=== PATIENT | male | born 1960 | race Caucasian/White ===

== ENCOUNTER 2022-05-20 19:20 | Outpatient (REF) | payer MEDICAID, SELFPAY ==
[2022-05-20 20:08] LABS: Calculated LDL 140 mg/dL (<100); Cholesterol 228 mg/dL (<200); HDL Cholesterol 51 mg/dL (40-60); Triglyceride 186 mg/dL (<150)
== END 2022-05-20 19:21 | disposition home or self-care (01) ==
LOC: NCHCN 19:20
PROVIDERS: Visit Provider Nurse Practitioner Family
DX: Z13.220 Encounter for screening for lipoid disorders (principal)
CPT/HCPCS: 80061

== ENCOUNTER 2022-08-15 14:57 | Outpatient (REF) | payer MEDICAID, SELFPAY ==
--- NOTE | 2022-08-15 13:15 | SKI_PTH ---
PATIENT: Jared Hair LOC: [facility]#:[id number] AGE/SX: 62/M ROOM: RE08/15/[address]: CHRIS Burnham : 1960 BED: DIS: 08/15/2022 SPEC #: [id number] RECD: 08/18/22 12:18 STATUS: QUYEN REQ #: [id number] DOMINIC: 08/15/22 13:[address]: Renan Jaeger DEPT: Surgical Specimen RECD BY: Mojgan Becker ENTERED: 08/18/22 12:18 SP TYPE: BELÉN VELEZ DR: LEONARDO DIAZ Tissues: 1 - SKIN BIOPSY(SHAVE/PUNCH) Procedures: SKIN LEVEL 4 Comments: [id number]
== END 2022-08-15 14:58 | disposition home or self-care (01) ==
LOC: LBN 14:57
PROVIDERS: PCP Nurse Practitioner Family; Visit Provider Physician Assistant
DX: R21 Rash and other nonspecific skin eruption (principal)
CPT/HCPCS: 88305

== ENCOUNTER 2022-09-17 17:57 | Outpatient (REF) | payer MEDICAID, SELFPAY ==
[2022-09-17 19:48] LABS: ALT 26 U/L (16-63); AST 31 U/L (15-37); Albumin 3.6 g/dL (3.4-5.0); Alkaline Phosphatase 85 U/L (46-116); Anion Gap 12.1 mmol/L (3-11); BUN 10 mg/dL (7-18); Bilirubin, Total 0.4 mg/dL (0.2-1.0); CO2 22.9 mmol/L (21.0-32.0); CREATININE 0.8 mg/dL (0.70-1.30); Calcium 8.1 mg/dL (8.5-10.1); Calculated LDL 78 mg/dL (<100); Chloride 103 mmol/L (98-107); Cholesterol 154 mg/dL (<200); Estimated GFR 101.32 (mL/min/1.73m2); Glucose 76 mg/dL (74-106); HDL Cholesterol 49 mg/dL (40-60); Potassium 4.2 mmol/L (3.5-5.1); Sodium 138 mmol/L (136-145); Total Protein 7.6 g/dL (6.4-8.2); Triglyceride 135 mg/dL (<150)
== END 2022-09-17 17:58 | disposition home or self-care (01) ==
LOC: NCHCN 17:57
PROVIDERS: PCP Nurse Practitioner Family; Visit Provider Nurse Practitioner Family
DX: E78.5 Hyperlipidemia, unspecified (principal)
CPT/HCPCS: 80053; 80061

== ENCOUNTER 2023-07-09 15:55 | Outpatient (REF) | payer MEDICAID, SELFPAY ==
[2023-07-09 15:35] LABS: ALT 30 U/L (16-63); AST 22 U/L (15-37); Albumin 3.7 g/dL (3.4-5.0); Alkaline Phosphatase 99 U/L (46-116); BUN 15 mg/dL (7-18); Bilirubin, Total 0.4 mg/dL (0.2-1.0); CREATININE 0.9 mg/dL (0.70-1.30); Calcium 9.2 mg/dL (8.5-10.1); Calculated LDL 90 mg/dL (<100); Chloride 105 mmol/L (98-107); Cholesterol 162 mg/dL (<200); Estimated GFR 97.17 (mL/min/1.73m2); Glucose 85 mg/dL (74-106); HDL Cholesterol 50 mg/dL (40-60); Potassium 4.6 mmol/L (3.5-5.1); Sodium 141 mmol/L (136-145); Total Protein 7.4 g/dL (6.4-8.2); Triglyceride 114 mg/dL (<150)
[2023-07-10 08:43] LABS: PSA, Screening 53.3 ng/mL (<=4.5)
== END 2023-07-09 15:56 | disposition home or self-care (01) ==
LOC: NCHCN 15:55
PROVIDERS: PCP Nurse Practitioner Family; Visit Provider Nurse Practitioner Family
DX: E78.5 Hyperlipidemia, unspecified (principal); Z12.5 Encounter for screening for malignant neoplasm of prostate
CPT/HCPCS: 80053; 80061; 84153

== ENCOUNTER 2023-08-07 14:41 | Outpatient (REF) | payer MEDICAID, SELFPAY ==
--- NOTE | 2023-08-07 15:40 | PROST_PTH ---
PATIENT: Jared Hair LOC: [facility] U#:[id number] AGE/SX: 63/M ROOM: RE08/07/[address]: Kwasi Tavares MD : 1960 BED: DIS: 08/07/2023 SPEC #: [id number] RECD: 08/07/23 17:13 STATUS: QUYEN RE #: [id number] DOMINIC: 08/07/23 15:[address]: Kwasi Tavares DEPT: Surgical Specimen RECD BY: Mojgan Becker ENTERED: 08/07/23 17:14 SP TYPE: PROST OTHR DR: Thelma Garza Tissues: 1 - PROSTATE NEEDLE BIOPSY 2 - PROSTATE NEEDLE BIOPSY 3 - PROSTATE NEEDLE BIOPSY 4 - PROSTATE NEEDLE BIOPSY 5 - PROSTATE NEEDLE BIOPSY 6 - PROSTATE NEEDLE BIOPSY 7 - PROSTATE NEEDLE BIOPSY 8 - PROSTATE NEEDLE BIOPSY 9 - PROSTATE NEEDLE BIOPSY 10 - PROSTATE NEEDLE BIOPSY 11 - PROSTATE NEEDLE BIOPSY 12 - PROSTATE NEEDLE BIOPSY Procedures: GROSS AND MICRO LEVEL 4 Comments: [id number]
== END 2023-08-07 14:42 | disposition home or self-care (01) ==
LOC: LBN 14:41
PROVIDERS: PCP Nurse Practitioner Family; Visit Provider Urology
DX: R97.20 Elevated prostate specific antigen [PSA] (principal); C61 Malignant neoplasm of prostate
CPT/HCPCS: 88305

== ENCOUNTER → 2023-09-22 00:43 | Outpatient (CLI) | payer MEDICAID, SELFPAY ==
--- NOTE | 2023-09-22 06:15 | DI.CT_ITS ---
Exam(s) CT CHEST/ABD/PEL W EXAM: CT CHEST/ABD/PEL W CLINICAL HISTORY: prostate ca, C61,?mets TECHNIQUE: Imaging Protocol: Axial computed tomography images with coronal and sagittal reformatted images were created and reviewed CONTRAST MATERIAL: Intravenous: Omnipaque 350 contrast volume:100 mL Oral: Yes COMPARISON: No exams were available for comparison FINDINGS: The examination is limited due to patient motion artifact. CHEST: Tracheobronchial tree: Patent where visualized. Pulmonary parenchyma: Mild centrilobular emphysematous changes are present. No focal consolidating i nfiltrates are seen. No pulmonary nodules are present. No architectural distortion. Visualized thyroid gland: Unremarkable. Mediastinum and Mee: No dominant adenopathy or fluid collection. The esophagus is unremarkable. Pleura: No effusion or pneumothorax. Heart: The heart is not dilated. No coronary artery calcifications are seen. No pericardial effusion. Pulmonary arteries: No pulmonary emboli are identified. Aorta: Thoracic aorta non-dilated. No evidence of dissection. Mild atherosclerotic calcification is present. Lymph nodes: Within normal limits. Soft tissues: Unremarkable. Bones:Within normal limits for the patient's age. No aggressive osseous lesions are identified. ABDOMEN: Liver: Normal density. No measurable mass. Portal, Superior Mesenteric, and Splenic Veins: Unremarkable. Gallbladder and Biliary Tract: The gallbladder is contracted limiting evaluation. No biliary ductal dilatation is present. Pancreas: Normal density, no abnormal calcifications or inflammatory process. Spleen: Normal. Adrenals: No masses seen. Kidneys: Normal size, contour and axis. No radiodense stones or obstructive uropathy. No masses seen. Abdominal Aorta: Abdominal portion non-dilated. Atherosclerotic calcification is present. Bowel: No obstruction or bowel wall thickening. No evidence of appendicitis. Peritoneal Cavity: No ascites, collection or mesenteric inflammatory response. No free air. Lymph Nodes: There are enlarged lymph nodes in the pelvis. The lymph nodes are associated with the i nternal and external iliac chain. The largest is seen on the left and measures 2.3 cm (series 16, im age 89). Bones: Within normal limits for the patient's age. There is a solitary sclerotic focus in the right sacrum. Soft Tissues: There is a small fat containing umbilical hernia. PELVIS: Bladder: Symmetric distention, no gross wall thickening. Reproductive Organs: Unremarkable as visualized. Lymph Nodes: Within normal limits. Bones: Within normal limits. IMPRESSION: 1. No evidence of thoracic metastatic disease. 2. Enlarged iliac chain adenopathy. 3. Solitary sclerotic focus in the right sacrum. Correlation with bone scan is recommended. 4. Mild centrilobular emphysematous changes in the lungs. RADIATION DOSE DELIVERED: Total DLP DATA REPOSITORY: All CT scans at this facility are submitted to the National Radiology Data Registry (NRDR) Dose Index Registry (DIR) with the [employer] (A[employer]). RADIATION OPTIMIZATION: All CT scans at this facility use at least one of these dose optimization te chniques: automated exposure control; mA and/or kV adjustment per patient size (includes targeted exa ms where dose is matched to clinical indication); or iterative reconstruction.
--- NOTE | 2023-09-22 06:26 | DI.NM_ITS ---
Exam(s) NM BONE SCAN WHOLE BODY GRP EXAM: NM BONE SCAN WHOLE BODY GRP CLINICAL HISTORY: prostate ca, ?mets,C61. TECHNIQUE: Injected Dose: 25 mCi Tc-99m MDP Delayed Images: 2-3 hours. COMPARISON: CT CT CHEST/ABD/PEL W from 09/22/2023 FINDINGS: Symmetric axial uptake. Bilateral renal excretion is identified. There is a focus of increased radiot racer uptake in the upper cervical spine on the left. This may be within the facet joint. It is dmitriy reciated on the posterior view. There is also increased radiotracer uptake seen in alveolar process of the maxilla and the mandible. There is otherwise no significant increased radiotracer uptake. De generative uptake is seen in the shoulders bilaterally. IMPRESSION: 1. Increased radiotracer uptake seen in the cervical spine which may be degenerative in nature. Nanda elation with x-ray of the cervical spine is recommended. 2. Increased lactate is seen in the maxilla and mandible. Please correlate with any procedural histo ry or clinical history. CT scan or x-ray correlation is recommended. Unexpected findings DATA REPOSITORY:
[2023-09-22 07:46] LABS: Estimated GFR 85.63 (mL/min/1.73m2)
[2023-09-22] MEDS: Barium Sulfate 2% W/V-Creamy Vanilla Smoothie 450 ML BTL PO ×2 (08:47→08:49)
[2023-09-22] MEDS: Omnipaque 350 MG/ML 100 ML BTL IJ (09:30)
[2023-09-22] MEDS: Normal Saline - Diluent 50 ML VIAL IJ (09:48)
== END ==
PROVIDERS: PCP Nurse Practitioner Family; Visit Provider Urology
DX: C61 Malignant neoplasm of prostate (principal)
CPT/HCPCS: 74177; 78306; 71260; 82565; J3490

== ENCOUNTER 2023-12-04 02:49 | Outpatient (CLI) | payer MEDICAID, SELFPAY ==
[2023-12-04 10:17] LABS: Abs Immature Grans 0.03 10^3/uL (0.0-0.06); Absolute Basophil Count 0.12 10^3/uL (0.0-0.2); Absolute Lymphocyte Count 2.38 10^3/uL (1.2-3.4); Absolute Monocyte Count 0.54 10^3/uL (0.1-0.8); Absolute Neutrophil Count 5.17 10^3/uL (1.2-6.7); Basophils % 1.4 %; Eosinophils % 3.5 %; HCT 42.1 % (40.0-50.0); HGB 13.9 g/dL (13.5-17.5); Immature Grans % 0.4 %; Lymphocytes % 27.9 %; MCH 32.1 pg (27.0-33.0); MCV 97 fL (80-95); MPV 10.2 fL (8.0-11.0); Monocytes % 6.3 %; Neutrophils % 60.5 %; Platelet Count 283 10^3/uL (130-400); RBC 4.33 10^6/uL (4.36-5.78); RDW 14.2 % (11.8-14.1); RDW-SD 51.3 fL; WBC 8.54 10^3/uL (4.4-10.8)
[2023-12-04 10:40] LABS: ALT 23 U/L (16-63); AST 22 U/L (15-37); Albumin 3.4 g/dL (3.4-5.0); Alkaline Phosphatase 89 U/L (46-116); Anion Gap 7.9 mmol/L (3-11); BUN 16 mg/dL (7-18); Bilirubin, Total 0.35 mg/dL (0.2-1.0); CO2 25.1 mmol/L (21.0-32.0); Calcium 8.6 mg/dL (8.5-10.1); Chloride 106 mmol/L (98-107); Estimated GFR 85.63 (mL/min/1.73m2); Glucose 85 mg/dL (74-106); Potassium 3.6 mmol/L (3.5-5.1); Sodium 139 mmol/L (136-145); Total Protein 7.2 g/dL (6.4-8.2)
[2023-12-08 13:13] LABS: Testosterone, Total <7.0 ng/dL (240-950)
[2023-12-09 10:32] LABS: PSA, Ultrasensitive 39.5 ng/mL (<= 4.5)
== END 2023-12-04 02:50 | disposition home or self-care (01) ==
PROVIDERS: Nurse Practitioner; PCP Nurse Practitioner Family; Visit Provider Internal Medicine Hematology
DX: C61 Malignant neoplasm of prostate (principal); C79.51 Secondary malignant neoplasm of bone
CPT/HCPCS: 80053; 84153; 84403; 85025

== ENCOUNTER 2024-01-19 03:00 | Outpatient (CLI) | payer MEDICAID, SELFPAY ==
[2024-01-19 11:29] LABS: Abs Immature Grans 0.03 10^3/uL (0.0-0.06); Absolute Basophil Count 0.08 10^3/uL (0.0-0.2); Absolute Eosinophil Count 0.32 10^3/uL (0.0-0.7); Absolute Monocyte Count 0.53 10^3/uL (0.1-0.8); Absolute Neutrophil Count 4.98 10^3/uL (1.2-6.7); Eosinophils % 4.1 %; HCT 42.6 % (40.0-50.0); HGB 14.2 g/dL (13.5-17.5); Immature Grans % 0.4 %; Lymphocytes % 23.3 %; MCH 31.8 pg (27.0-33.0); MCHC 33.3 % (32.0-36.0); MCV 95 fL (80-95); MPV 9.7 fL (8.0-11.0); Monocytes % 6.8 %; Neutrophils % 64.4 %; Platelet Count 290 10^3/uL (130-400); RBC 4.47 10^6/uL (4.36-5.78); RDW 12.9 % (11.8-14.1); RDW-SD 45.8 fL; WBC 7.74 10^3/uL (4.4-10.8)
[2024-01-19 11:45] LABS: ALT 31 U/L (16-63); AST 24 U/L (15-37); Albumin 3.7 g/dL (3.4-5.0); Alkaline Phosphatase 112 U/L (46-116); Anion Gap 7.1 mmol/L (3-11); BUN 22 mg/dL (7-18); Bilirubin, Total 0.48 mg/dL (0.2-1.0); CO2 27.9 mmol/L (21.0-32.0); CREATININE 1.1 mg/dL (0.70-1.30); Calcium 8.9 mg/dL (8.5-10.1); Chloride 105 mmol/L (98-107); Estimated GFR 76.37 (mL/min/1.73m2); Glucose 99 mg/dL (74-106); Potassium 3.9 mmol/L (3.5-5.1); Sodium 140 mmol/L (136-145); Total Protein 7.8 g/dL (6.4-8.2)
[2024-01-21 11:06] LABS: PSA, Ultrasensitive 0.97 ng/mL (<= 4.5)
[2024-01-22 14:11] LABS: Testosterone, Total <7.0 ng/dL (240-950)
== END 2024-01-19 03:01 | disposition home or self-care (01) ==
LOC: LBO 03:00
PROVIDERS: PCP Nurse Practitioner Family; Visit Provider Internal Medicine
DX: C61 Malignant neoplasm of prostate (principal); C79.51 Secondary malignant neoplasm of bone
CPT/HCPCS: 36415; 80053; 84153; 84403; 85025

== ENCOUNTER 2024-02-18 02:43 | Outpatient (CLI) | payer MEDICAID, SELFPAY ==
[2024-02-18 10:41] LABS: Abs Immature Grans 0.03 10^3/uL (0.0-0.06); Absolute Basophil Count 0.11 10^3/uL (0.0-0.2); Absolute Eosinophil Count 0.38 10^3/uL (0.0-0.7); Absolute Lymphocyte Count 3.24 10^3/uL (1.2-3.4); Absolute Monocyte Count 0.72 10^3/uL (0.1-0.8); Absolute Neutrophil Count 5.55 10^3/uL (1.2-6.7); Basophils % 1.1 %; Eosinophils % 3.8 %; HCT 41.4 % (40.0-50.0); HGB 13.8 g/dL (13.5-17.5); Immature Grans % 0.3 %; Lymphocytes % 32.3 %; MCH 31.9 pg (27.0-33.0); MCHC 33.3 % (32.0-36.0); MCV 96 fL (80-95); Monocytes % 7.2 %; Neutrophils % 55.3 %; Platelet Count 321 10^3/uL (130-400); RBC 4.33 10^6/uL (4.36-5.78); RDW 13.1 % (11.8-14.1); RDW-SD 46.4 fL; WBC 10.03 10^3/uL (4.4-10.8)
[2024-02-18 11:26] LABS: ALT 36 U/L (16-63); AST 24 U/L (15-37); Albumin 3.8 g/dL (3.4-5.0); Alkaline Phosphatase 117 U/L (46-116); Anion Gap 10.2 mmol/L (3-11); BUN 16 mg/dL (7-18); Bilirubin, Total 0.63 mg/dL (0.2-1.0); CO2 27.8 mmol/L (21.0-32.0); Calcium 9.1 mg/dL (8.5-10.1); Chloride 103 mmol/L (98-107); Estimated GFR 85.63 (mL/min/1.73m2); Glucose 87 mg/dL (74-106); Potassium 3.8 mmol/L (3.5-5.1); Sodium 141 mmol/L (136-145); Total Protein 7.9 g/dL (6.4-8.2)
[2024-02-21 15:21] LABS: Testosterone, Total <7.0 ng/dL (240-950)
== END 2024-02-18 02:44 | disposition home or self-care (01) ==
LOC: LBO 02:43
PROVIDERS: PCP Nurse Practitioner Family; Visit Provider Internal Medicine
DX: C61 Malignant neoplasm of prostate (principal); C79.51 Secondary malignant neoplasm of bone
CPT/HCPCS: 36415; 80053; 84153; 84403; 85025

== ENCOUNTER 2024-03-09 04:12 | Outpatient (CLI) | payer MEDICAID, SELFPAY ==
[2024-03-09 10:12] LABS: Abs Immature Grans 0.05 10^3/uL (0.0-0.06); Absolute Basophil Count 0.18 10^3/uL (0.0-0.2); Absolute Eosinophil Count 0.82 10^3/uL (0.0-0.7); Absolute Lymphocyte Count 3.46 10^3/uL (1.2-3.4); Absolute Monocyte Count 0.75 10^3/uL (0.1-0.8); Absolute Neutrophil Count 5.68 10^3/uL (1.2-6.7); Basophils % 1.6 %; Eosinophils % 7.5 %; HCT 42.1 % (40.0-50.0); HGB 13.8 g/dL (13.5-17.5); Immature Grans % 0.5 %; Lymphocytes % 31.6 %; MCH 31.9 pg (27.0-33.0); MCHC 32.8 % (32.0-36.0); MCV 97 fL (80-95); MPV 9.8 fL (8.0-11.0); Monocytes % 6.9 %; Neutrophils % 51.9 %; Platelet Count 329 10^3/uL (130-400); RBC 4.33 10^6/uL (4.36-5.78); RDW 13.4 % (11.8-14.1); RDW-SD 48.7 fL; WBC 10.94 10^3/uL (4.4-10.8)
[2024-03-09 10:45] LABS: ALT 36 U/L (16-63); AST 22 U/L (15-37); Albumin 3.6 g/dL (3.4-5.0); Alkaline Phosphatase 98 U/L (46-116); Anion Gap 6.1 mmol/L (3-11); BUN 20 mg/dL (7-18); Bilirubin, Total 0.37 mg/dL (0.2-1.0); CO2 30.9 mmol/L (21.0-32.0); Chloride 106 mmol/L (98-107); Estimated GFR 85.63 (mL/min/1.73m2); Glucose 91 mg/dL (74-106); Potassium 3.7 mmol/L (3.5-5.1); Sodium 143 mmol/L (136-145); Total Protein 7.7 g/dL (6.4-8.2)
[2024-03-10 19:00] LABS: PSA, Ultrasensitive 0.46 ng/mL (<= 4.5)
[2024-03-13 10:16] LABS: Testosterone, Total <7.0 ng/dL (240-950)
== END 2024-03-09 04:13 | disposition home or self-care (01) ==
LOC: LBO 04:12
PROVIDERS: PCP Nurse Practitioner Family; Visit Provider Internal Medicine
DX: C61 Malignant neoplasm of prostate (principal); C79.51 Secondary malignant neoplasm of bone
CPT/HCPCS: 36415; 80053; 84153; 84403; 85025

== ENCOUNTER 2024-08-09 02:31 | Outpatient (CLI) | payer MEDICAID, SELFPAY ==
[2024-08-09 11:02] LABS: Abs Immature Grans 0.02 10^3/uL (0.0-0.06); Absolute Basophil Count 0.04 10^3/uL (0.0-0.2); Absolute Eosinophil Count 0.29 10^3/uL (0.0-0.7); Absolute Lymphocyte Count 0.35 10^3/uL (1.2-3.4); Absolute Monocyte Count 0.34 10^3/uL (0.1-0.8); Absolute Neutrophil Count 4.58 10^3/uL (1.2-6.7); Basophils % 0.7 %; Eosinophils % 5.2 %; HCT 38.2 % (40.0-50.0); HGB 12.7 g/dL (13.5-17.5); Immature Grans % 0.4 %; Lymphocytes % 6.2 %; MCH 31.6 pg (27.0-33.0); MCHC 33.2 % (32.0-36.0); MCV 95 fL (80-95); MPV 10.1 fL (8.0-11.0); Neutrophils % 81.5 %; Platelet Count 168 10^3/uL (130-400); RBC 4.02 10^6/uL (4.36-5.78); RDW 13.2 % (11.8-14.1); RDW-SD 46.7 fL; WBC 5.62 10^3/uL (4.4-10.8)
[2024-08-09 11:17] LABS: ALT 33 U/L (16-63); AST 25 U/L (15-37); Albumin 3.6 g/dL (3.4-5.0); Alkaline Phosphatase 102 U/L (46-116); Anion Gap 5.6 mmol/L (3-11); BUN 12 mg/dL (7-18); Bilirubin, Total 0.5 mg/dL (0.2-1.0); CO2 28.4 mmol/L (21.0-32.0); CREATININE 1.1 mg/dL (0.70-1.30); Calcium 8.9 mg/dL (8.5-10.1); Chloride 103 mmol/L (98-107); Glucose 101 mg/dL (74-106); Potassium 3.6 mmol/L (3.5-5.1); Sodium 137 mmol/L (136-145); Total Protein 7.5 g/dL (6.4-8.2)
[2024-08-11 09:34] LABS: PSA, Ultrasensitive 0.09 ng/mL (<= 4.5)
[2024-08-14 16:56] LABS: Testosterone, Total <7.0 ng/dL (240-950)
== END 2024-08-09 02:32 | disposition home or self-care (01) ==
LOC: LBO 02:31
PROVIDERS: PCP Nurse Practitioner Family; Visit Provider Internal Medicine
DX: C61 Malignant neoplasm of prostate (principal); C79.51 Secondary malignant neoplasm of bone
CPT/HCPCS: 36415; 80053; 84153; 84403; 85025

== ENCOUNTER 2024-11-15 03:44 | Outpatient (CLI) | payer MEDICAID, SELFPAY ==
[2024-11-15 12:09] LABS: Abs Immature Grans 0.02 10^3/uL (0.0-0.06); HCT 37.2 % (40.0-50.0); HGB 12.5 g/dL (13.5-17.5); Immature Grans % 0.2 %; MCH 33.0 pg (27.0-33.0); MCHC 33.6 % (32.0-36.0); MCV 98 fL (80-95); MPV 9.9 fL (8.0-11.0); Platelet Count 253 10^3/uL (130-400); RBC 3.79 10^6/uL (4.36-5.78); RDW 13.2 % (11.8-14.1); RDW-SD 47.4 fL; WBC 8.15 10^3/uL (4.4-10.8)
[2024-11-15 12:34] LABS: ALT 24 U/L (16-63); AST 19 U/L (15-37); Albumin 3.7 g/dL (3.4-5.0); Alkaline Phosphatase 101 U/L (46-116); Anion Gap 11.3 mmol/L (3-11); BUN 15 mg/dL (7-18); Bilirubin, Total 0.4 mg/dL (0.2-1.0); CO2 24.7 mmol/L (21.0-32.0); Calcium 9.0 mg/dL (8.5-10.1); Chloride 105 mmol/L (98-107); Estimated GFR 100.06 (mL/min/1.73m2); Glucose 94 mg/dL (74-106); Potassium 4.1 mmol/L (3.5-5.1); Sodium 141 mmol/L (136-145); Total Protein 7.3 g/dL (6.4-8.2)
== END 2024-11-15 03:45 | disposition home or self-care (01) ==
LOC: LBO 03:44
PROVIDERS: PCP Nurse Practitioner Family; Visit Provider Internal Medicine
DX: C61 Malignant neoplasm of prostate (principal); C79.51 Secondary malignant neoplasm of bone
CPT/HCPCS: 36415; 80053; 84153; 84403; 85025

== ENCOUNTER 2024-12-28 20:52 | Outpatient (REF) | payer MEDICAID, SELFPAY ==
[2024-12-28 22:01] LABS: Iron 73 ug/dL (65-175); Total Iron Binding Capacity 279 ug/dL (250-450); Transferrin Sat 26 % (20-55)
[2024-12-28 22:25] LABS: Ferritin 270 ng/mL (26-388); Folate 6.3 ng/mL (8.6-20.0); Vitamin B12 442 pg/mL (193-986)
== END 2024-12-28 20:53 | disposition home or self-care (01) ==
LOC: NCHCN 20:52
PROVIDERS: PCP Student in an Organized Health Care Education/Training Program; Visit Provider Student in an Organized Health Care Education/Training Program
DX: D53.9 Nutritional anemia, unspecified (principal)
CPT/HCPCS: 82607; 82728; 82746; 83540; 83550

== ENCOUNTER → 2025-01-06 03:26 | Outpatient (CLI) | payer MEDICAID, SELFPAY ==
--- NOTE | 2025-01-06 | DI.CTLCSR_ITS ---
Exam(s) CT CHEST LUNG CANCER SCREEN EXAM: CT CHEST LUNG CANCER SCREEN CLINICAL HISTORY: PERS HX NICOTINE DEPENDENCE Z87.891 [employer]MER [employer]. TECHNIQUE: Imaging Protocol: Low Dose Technique CONTRAST MATERIAL: None COMPARISON: CT CT CHEST/ABD/PEL W from 09/22/2023 FINDINGS: CHEST: LUNGS: There are no ominous pulmonary nodules. Small sub pleural nodular infiltrate in the anterior segment of the right upper lobe is again noted and there are also mild increased markings in the inferior lingular segment of the left lung, also unchanged. There are no new infiltrates nor pleural effusions. No new ominous pulmonary nodules. MEDIASTINUM: There is no obvious hilar nor mediastinal adenopathy. CARDIAC: Heart size is normal. There is no pericardial effusion.Caliber of the thoracic aorta is within normal limits. OTHER: No adrenal masses nor splenomegaly. No ascites evident. OSSEOUS: No significant osseous lesions.No fractures.. IMPRESSION: 1. Stable benign-appearing findings. 2. No new ominous pulmonary nodules, infiltrates of pleural effusions nor new intrathoracic adenopathy. 3. Lung RADS Cat 2 - Benign Appearance / Behavior: Nodules with a very low likelihood of becoming a clinically active cancer due to size or lack of growth Lung-RADS 1.0 CATEGORIES: Category 0 - Prior chest CT exam(s) being located for comparison. Category 1 - Annual screening in 12 months. No nodules or definitely benign nodules. Category 2 - Annual screening in 12 months. Benign appearance. Nodules with low likelihood of becoming active cancer. Category 3 - 6-month follow-up. Probably benign. Short-term follow-up suggested. Nodules with low likelihood of becoming active cancer. Category 4A - 3-month follow-up and CT/PET if >8 mm in size. Suspicious finding. Findings which require additional testing. Category 4B - Findings which require additional testing and tissue sampling. Category 4X - Category 3 or 4 nodules with additional features or imaging findings that increases the suspicion of malignancy. Modifier S- Potentially clinically significant findings (non lung cancer) RADIATION DOSE DELIVERED: 28.86mGy.cm Total DLP DATA REPOSITORY: All CT scans at this facility are submitted to the National Radiology Data Registry (NRDR) Dose Index Registry (DIR) with the [employer] (A[employer]). RADIATION OPTIMIZATION: All CT scans at this facility use at least one of these dose optimization techniques: automated exposure control; mA and/or kV adjustment per patient size (includes targeted exams where dose is matched to clinical indication); or iterative reconstruction.
== END ==
LOC: DI 03:26
PROVIDERS: PCP Student in an Organized Health Care Education/Training Program; Visit Provider Student in an Organized Health Care Education/Training Program
DX: Z87.891 Personal history of nicotine dependence (principal)
CPT/HCPCS: 71271

== ENCOUNTER 2025-02-03 01:59 | Outpatient (CLI) | payer MEDICAID, SELFPAY ==
[2025-02-03 10:47] LABS: Abs Immature Grans 0.02 10^3/uL (0.0-0.06); HCT 38.2 % (40.0-50.0); HGB 12.6 g/dL (13.5-17.5); Immature Grans % 0.4 %; MCH 31.7 pg (27.0-33.0); MCHC 33.0 % (32.0-36.0); MCV 96 fL (80-95); MPV 10.3 fL (8.0-11.0); Platelet Count 258 10^3/uL (130-400); RBC 3.97 10^6/uL (4.36-5.78); RDW 12.7 % (11.8-14.1); RDW-SD 45.6 fL; WBC 4.90 10^3/uL (4.4-10.8)
[2025-02-03 11:05] LABS: ALT 15 U/L (10-49); AST 20 U/L (<34); Albumin 4.0 g/dL (3.2-5.0); Alkaline Phosphatase 127 U/L (46-116); Anion Gap 5.4 mmol/L (3-11); BUN 19 mg/dL (9-23); Bilirubin, Total 0.40 mg/dL (0.2-1.2); CO2 28.6 mmol/L (20.0-31.0); Calcium 8.9 mg/dL (8.3-10.6); Chloride 108 mmol/L (98-107); Glucose 89 mg/dL (74-106); Potassium 3.9 mmol/L (3.5-5.1); Sodium 142 mmol/L (136-145); Total Protein 7.0 g/dL (5.7-8.2)
== END 2025-02-03 02:00 | disposition home or self-care (01) ==
PROVIDERS: PCP Student in an Organized Health Care Education/Training Program; Referring Provider Nurse Practitioner; Visit Provider Nurse Practitioner
DX: C61 Malignant neoplasm of prostate (principal); R23.2 Flushing; C79.51 Secondary malignant neoplasm of bone
CPT/HCPCS: 36415; 80053; 84153; 84403; 85025